=== PATIENT | male | born 2000 | race African-American/Black ===

== ENCOUNTER 2024-05-16 07:47 | Emergency (ER) | payer BC, SELFPAY ==
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
[2024-05-16 07:53] VITALS: BP 138/90; PULSE 63; RESP 20; TEMP 36.6; O2SAT 98
[2024-05-16 08:05] VITALS: BP 137/93; PULSE 80; RESP 20; O2SAT 98
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
[2024-05-16] MEDS: IBUPROFEN 400 MG TABLET 800 MG PO (09:51)
[2024-05-16] MEDS: ACETAMINOPHEN 500 MG TABLET 1000 MG PO (09:51)
[2024-05-16 10:17] VITALS: BP 132/92; PULSE 72; RESP 18; O2SAT 99
== END 2024-05-16 10:37 | disposition home or self-care (01) ==
PROVIDERS: Emergency Provider Physician Assistant
DX: S39.012A Strain of muscle, fascia and tendon of lower back, initial encounter (principal); V43.62XA Car passenger injured in collision with other type car in traffic accident, initial encounter
CPT/HCPCS: 72131; 99284; A9270

== ENCOUNTER 2024-06-09 10:11 | Emergency (ER) | payer BC, SELFPAY ==
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
[2024-06-09 10:22] VITALS: BP 147/78; PULSE 78; RESP 18; TEMP 36.6; O2SAT 97
--- NOTE | 2024-06-09 11:28 | ED.GENADULT ---
HPI - General Adult General Chief complaint: Extremity Injury, Lower Stated complaint: right ankle injury Time Seen by Provider: 06/09/24 10:47 History of Present Illness HPI narrative: 23-year-old male presents to the emergency department for evaluation for right ankle pain. 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 Patient states that typically when he is brain his ankle he does improve over the next few days with patient states he has been having to continue to use the ankle at work and symptoms appear to be persistent/worsening. Related Data Allergies Allergy/AdvReac Type Severity Reaction Status Date / Time No Known Allergies Allergy Verified 05/16/24 08:06 Review of Systems Review of Systems: All systems reviewed & are unremarkable except as noted in HPI and below Exam Narrative: APPEARANCE: Well appearing, no pain, no distress, well-nourished. HEAD: normocephalic, atraumatic. EYES: PERRLA/EOMI, conjunctivae clear. NOSE: Normal no drainage EARS:TMS clear with good light reflex. THROAT: Pharynx clear, no exudate. NECK: Supple. No adenopathy, no masses. RESPIRATORY: Airway patent, respirations nonlabored. Clear to auscultation bilaterally, no rales, rhonchi, wheezing. CARDIOVASCULAR: Regular rate and rhythm without murmurs rubs or gallops. ABDOMINAL: Soft, nontender, nondistended, normal bowel sounds MUSCULOSKELETAL: Right ankle tenderness to palpation, no deformity, strong pulses NEURO: Alert. Cranial nerves II through XII intact. Grossly intact SKIN: Warm, dry. Normal Color Course Vital Signs Vital signs: Vital Signs Temperature 97.9 F 06/09/24 10:22 Pulse Rate 78 06/09/24 10:22 Respiratory Rate 18 06/09/24 10:22 Blood Pressure 147/78 H 06/09/24 10:22 Pulse Oximetry 97 06/09/24 10:22 Temperature 97.9 F 06/09/24 10:22 Pulse Rate 78 06/09/24 10:22 Respiratory Rate 18 06/09/24 10:22 Blood Pressure 147/78 H 06/09/24 10:22 Pulse Oximetry 97 06/09/24 10:22 Medical Decision Making [facility] Narrative Medical decision making narrative: 23-year-old male presents to the emergency department for evaluation for a left ankle injury. X-rays were negative for acute fracture or dislocation. Patient was provided Louis wrap and crutches for limited weight-bearing. Differential Diagnosis Differential Diagnosis: Ankle sprain, ankle contusion, fracture Vital Signs Vital Signs: Vital Signs Temperature 97.9 F 06/09/24 10:22 Pulse Rate 78 06/09/24 10:22 Respiratory Rate 18 06/09/24 10:22 Blood Pressure 147/78 H 06/09/24 10:22 Pulse Oximetry 97 06/09/24 10:22 Temperature 97.9 F 06/09/24 10:22 Pulse Rate 78 06/09/24 10:22 Respiratory Rate 18 06/09/24 10:22 Blood Pressure 147/78 H 06/09/24 10:22 Pulse Oximetry 97 06/09/24 10:22 Imaging Data Radiologist's impression: Impressions Ankle X-Ray 06/09/24 11:02 IMPRESSION: No acute osseous abnormality of the right ankle. Discharge Plan Discharge Clinical Impression: Ankle sprain and strain Patient Disposition: Home, Self-Care Condition: Stable Instructions: Antibiotic Form, Ankle Sprain (DC), Crutch Instructions (ED) Additional Instructions: Tylenol and ibuprofen for pain control. Louis wrap for comfort. Crutches for limited weight-bearing for the next 5 days. Have close follow-up with your primary care physician and Orthopedics. If you have worsening symptoms then please call or return to the emergency department. If your symptoms do not improve then you may require an outpatient MRI to further evaluate the ankle Prescriptions: No Action cyclobenzaprine 10 mg tablet 10 mg PO HS PRN (Reason: muscle spasm) Qty: 10 0RF Follow-up/Referrals: Franki Jung MD [Physician] - UNKNOWN,DOCTOR [Primary Care Provider] - Stand Alone Forms: Work/School Release IP
== END 2024-06-09 12:01 | disposition home or self-care (01) ==
PROVIDERS: Emergency Provider Emergency Medicine
DX: S93.401A Sprain of unspecified ligament of right ankle, initial encounter (principal); S96.911A Strain of unspecified muscle and tendon at ankle and foot level, right foot, initial encounter; X58.XXXA Exposure to other specified factors, initial encounter
CPT/HCPCS: 73610; 99283